=== PATIENT | male | born 1985 | race Caucasian/White ===

== ENCOUNTER 2020-02-29 18:02 | Emergency (ER) | payer BC, SELFPAY ==
[2020-02-29 18:13] VITALS: BP 150/101; PULSE 90; RESP 18; TEMP 36.7; O2SAT 97; BMI 28.7
[2020-02-29 18:18] VITALS: BP 150/101; PULSE 90; RESP 18; TEMP 36.7; O2SAT 97; BMI 28.6
--- NOTE | 2020-02-29 18:20 | XR_ITS ---
PROCEDURE: XR KNEE LT 3V CLINICAL INDICATION: FALL Posttraumatic pain with bruising and swelling COMPARISON: No exams were available for comparison FINDINGS: No fracture or dislocation. No lytic or blastic change. There is normal mineralization. The joint spaces are well-preserved. No significant degenerative/arthritic changes. No erosive changes evident. Other findings:There are 2 lucency is noted over the central tibial region of uncertain etiology. Soft tissue swelling is present in the pre patellar region and infrapatellar region. There may be a small knee joint effusion. IMPRESSION: No acute fracture. Soft tissue swelling with possible small knee joint effusion Nonspecific lucencies over the proximal tibia etiology indeterminate. Stability may be confirmed with follow-up Dictated by: Addison John MD 02/29/2020 21:46 Electronically signed by Addison John MD in [place] 02/29/2020 21:46
--- NOTE | 2020-02-29 18:22 | HMH.EDUTC ---
[facility] Disposition Clinical Impression: Patella fracture Qualifiers: Encounter type: initial encounter Fracture type: closed Fracture morphology: unspecified fracture morphology Fracture alignment: nondisplaced Laterality: left Qualified Code(s): S82.002A - Unspecified fracture of left patella, initial encounter for closed fracture Disposition: Home, Self-Care Condition on Discharge: Good Instructions: How to Use Crutches, How To Perform RICE (Rest, Ice, Compress, Elevate) Additional Instructions: *NO weight bearing *RICE, Rest the extremity, Ice 15-20 minutes 3-4 times daily, Compress- wear the dion wrap as discussed as much as possible to help reduce swelling and pain, Elevate the extremity when at rest *Knee immobilizer is for support and help control swelling, use it except in the shower. Be sure that is not to tight but not to loose either *Elevate when resting Elevation will help with swelling and pain *Ibuprofen 600 every 6-8 hours as needed for pain an inflammation. If need something more can take Tylenol in between doses of Ibuprofen to help Immediately follow up with your family doctor for new or worsening of symptoms, or no noticeable improvement over the next 3-5 days Follow up with Dr Davis in Orthopedic clinic her office will call you with appointment if they havent called you by noon on Monday call the office for appointment Return if needed Straight to ER if any life threatening symptoms Prescriptions: Ibuprofen [Ibuprofen 600mg Tablet] 600 mg PO Q6HP PRN #20 tab PRN Reason: Moderate Pain Prescription Printed Referrals: Provider,MD Meghna [Primary Care Provider] - As needed Lucero Davis MD [Physician] - As needed (Her office will call you with appointment if they havent called you by noon on Monday then call the office) Forms: Work/School Release Time of Disposition: 18:53 Medical Decision Making - Raymundo Inquiry Pt receiving controlled substance: No Raymundo was queried for this patient: No Vital Signs: 02/29/20 18:13 02/29/20 18:18 Temperature 98.1 F 98.1 F Temperature Source Oral Oral Pulse Rate [Left Radial] 90 90 Respiratory Rate 18 18 Blood Pressure [Left Arm] 150/101 H 150/101 H Blood Pressure Mean [Left Arm] 117 117 Blood Pressure Source [Left Arm] Automatic Cuff Automatic Cuff Blood Pressure Position [Left Arm] Sitting Sitting 02 Sat by Pulse Oximetry 97 97 Oxygen Delivery Method Room Air Room Air Orders (Tests/Meds): ED MEDICATIONS Discontinued Medications Generic Name Dose Route Start Last Admin Trade Name Cierra PRN Reason Stop Dose Admin Ketorolac Tromethamine 60 mg 02/29/20 18:46 02/29/20 18:54 Toradol 60mg/2ml Vial IM 02/29/20 18:47 60 mg ONCE ONE Administration ORDERS Category Date Time Status XR knee LT 3V Stat Exams 02/29/20 18:20 Taken - Radiology Data #1 Image(s): Knee Image Reviewed: Yes I reviewed the patient's radiology image ? patella fracture, knee immobilizer, crutches and follow up with Orthopedics Dr Davis - Physician Consults Physician Consulted: Susan Time: 18:40 Reason -: Orthopedic Eval/Care Comment/Response: Spoke with Dr Davis and she viewed xrays and agreed, ? patella fracture, advised place patient in knee immobilizer, crutches, rice, and her office will call with appointment [facility] HPI - General Stated complaint: AO [id number] injured L knee Time Seen by Provider: 02/29/20 18:22 Mode of Arrival: Ambulatory Source of Information: Patient Limitations: No Limitations Description of Symptoms (Recalled from Triage Doc. by RN): PT STATES THAT HE TRIPPED AND FELL ON MONDAY, HITTING BOTH KNEES. PT PRESENTS WITH BRUISING OF BOTH KNEES, BUT C/O PAIN ONLY IN THE LT KNEE. PT STATES THAT THE BRUISING HAS EXTENDED AND THE KNEE FEELS TIGHT TO BEND. HEENT Symptoms (Recalled from RN notes): No Resp Symptoms (Recalled from RN notes): No Skin Symptoms (Recalled from RN notes): Yes MS Symptoms (Recalled from RN no
[2020-02-29 19:41] VITALS: BP 150/101; PULSE 90; RESP 18; TEMP 36.7; O2SAT 97
== END 2020-02-29 19:42 | disposition home or self-care (01) ==
LOC: ER 18:16 → UTC 18:17
PROVIDERS: Emergency Provider Nurse Practitioner
DX: S82.002A Unspecified fracture of left patella, initial encounter for closed fracture (principal); W01.0XXA Fall on same level from slipping, tripping and stumbling without subsequent striking against object, initial encounter; Y92.89 Other specified places as the place of occurrence of the external cause
CPT/HCPCS: 29505; 73562; 96372; 99202; 99203

== ENCOUNTER → 2020-03-05 14:25 | Outpatient (CLI) | payer BC, SELFPAY ==
--- NOTE | 2020-03-05 14:25 | MR_ITS ---
PROCEDURE: MR KNEE LT WO CON CLINICAL INDICATION: fracture eval Fall with injury and pain, swelling and bruising with limited range of motion COMPARISON: XR KNEE LT 3V from 02/29/2020 TECHNIQUE: Routine multiplanar multi echo sequences are performed without gadolinium enhancement. FINDINGS: The cruciate ligaments, collateral ligaments, and patellar tendon has an unremarkable appearance.. There is discontinuity of the posterior aspect of the quadriceps tendon best detected on sagittal image 13 series 4 suggesting tear of the posterior aspect of the quadriceps tendon. The tear of the quadriceps tendon does not appear to be complete. Prominent soft tissue swelling is present in the prepatellar and infrapatellar region. Heterogeneous increased T2 signal involves the prepatellar and infrapatellar soft tissues measuring 4 x 1.4 cm consistent with hematoma no obvious patellar fracture. The patellar cartilage is preserved. No meniscal tear apparent. There is a small knee joint effusion. IMPRESSION: 1. No evidence of internal derangement or fracture. 2. Partial tear of the quadriceps tendon with suspected tear of the posterior surface of the tendon 3. Prepatellar and infrapatellar subcutaneous hematoma with soft tissue swelling Dictated by: Addison John MD 03/07/2020 08:11 Electronically signed by Addison John MD in [place] 03/07/2020 08:11
--- NOTE | 2020-03-05 14:33 | XR_ITS ---
PROCEDURE: XR ORBIT BILATERAL MIN 4V CLINICAL INDICATION: MRI CLEARANCE FOR FB History orbital foreign body COMPARISON: No exams were available for comparison FINDINGS: No fracture or dislocation. No lytic or blastic change. There is normal mineralization. The joint spaces are well-preserved. No significant degenerative/arthritic changes. No erosive changes evident. Other findings:None. IMPRESSION: No acute findings. Dictated by: Addison John MD 03/05/2020 15:31 Electronically signed by Addison John MD in [place] 03/05/2020 15:31
== END ==
LOC: RAD 14:25
PROVIDERS: Visit Provider Orthopaedic Surgery
DX: M25.562 Pain in left knee (principal); H05.53 Retained (old) foreign body following penetrating wound of bilateral orbits
CPT/HCPCS: 70200; 73721

== ENCOUNTER 2020-04-02 16:29 | Outpatient (RCR) | payer BC, SELFPAY | END 2020-04-02 17:00 | disposition home or self-care (01) | LOC: PT 16:29 | PROVIDERS: Visit Provider Orthopaedic Surgery | DX: S76.102A Unspecified injury of left quadriceps muscle, fascia and tendon, initial encounter (principal) ==

== ENCOUNTER → 2020-04-22 11:14 | Outpatient (CLI) | payer BC, SELFPAY ==
[2020-04-22 11:41] LABS: Basophils % 1.2 % (0.1-2.0); Eosinophils # 0.1 K/mm3 (0.0-0.4); Eosinophils % 3.3 % (0.1-12.0); Hematocrit 41.9 % (42.0-52.0); Hemoglobin 14.9 g/dL (14.1-18.0); Lymphocytes # 1.2 K/mm3 (0.7-4.5); Lymphocytes % 34.5 % (10-50); Mean Corpuscular HGB Conc 35.4 g/dL (31.8-35.4); Mean Corpuscular Hemoglobin 34.8 pg (27.0-31.2); Mean Corpuscular Volume 98.1 fl (80-94); Mean Platelet Volume 7.3 fl (7.4-10.4); Monocytes # 0.1 K/mm3 (0.1-1.0); Monocytes % 3.6 % (1.7-9.3); Neutrophils % 57.5 % (37.0-80.0); Platelet Count 150 K/mm3 (142-424); Red Blood Count 4.27 M/mm3 (4.60-6.20); Red Cell Distribution Width 12.7 % (11.5-17.5); White Blood Count 3.6 K/mm3 (4.8-10.8)
[2020-04-22 12:01] LABS: Chloride 97 mmol/L (98-107)
[2020-04-22 12:02] LABS: Potassium 4.5 mmoL/L (3.5-5.1); Sodium 140 mmol/L (136-145)
[2020-04-22 12:04] LABS: Alanine Aminotransferase 484 U/L (12-78); Alkaline Phosphatase 64 U/L (38-126); Anion Gap 17.5 mEq/L (5-15); Aspartate Amino Transferase 682 U/L (17-59); Blood Urea Nitrogen 6 mg/dl (9-20); Carbon Dioxide 30 mmol/L (22.0-30.0); Estimated Glomerular Filt Rate 111 ml/min (>60); GFR (African American) 135 ML/MIN (>60)
[2020-04-22 12:05] LABS: Albumin Level 4.7 g/dl (3.5-5.0); Albumin/Globulin Ratio 1.4 (1.1-1.8); Calcium 9.6 mg/dl (8.4-10.2); Globulin 3.3 g/dL (1.3-3.2); Glucose 91 mg/dl (74-100)
[2020-04-22 13:57] LABS: Coronavirus 19 IgG Antibody Negative (Negative); Coronavirus 19 IgM Antibody Negative (Negative)
== END ==
PROVIDERS: Visit Provider Orthopaedic Surgery
DX: Z01.818 Encounter for other preprocedural examination (principal); S76.102A Unspecified injury of left quadriceps muscle, fascia and tendon, initial encounter
CPT/HCPCS: 36415; 80053; 85025; 86328

== ENCOUNTER 2020-04-23 17:00 | Outpatient (RCR) | payer BC, SELFPAY | END 2020-04-23 17:05 | disposition home or self-care (01) | LOC: PT 17:00 | PROVIDERS: Visit Provider Orthopaedic Surgery | DX: M25.562 Pain in left knee (principal) | CPT/HCPCS: 97010; 97110; 97163; 97760 ==

== ENCOUNTER → 2020-04-24 12:46 | Outpatient (CLI) | payer BC, SELFPAY ==
[2020-04-24 14:08] LABS: Activated Partial Thrombo Time 20.7 seconds (23.6-34.0); INR 0.98 (0.9-1.1); Prothrombin Time 10.1 seconds (9.4-11.8)
[2020-04-24 14:25] LABS: Total Iron Binding Capacity 210 ug/dL (261-462)
[2020-04-24 14:30] LABS: Alanine Aminotransferase 444 U/L (12-78); Alkaline Phosphatase 58 U/L (38-126); Aspartate Amino Transferase 485 U/L (17-59); Bilirubin,Direct 0.3 mg/dl (0.0-0.4); Bilirubin,Indirect 0.6 mg/dL (0.0-0.9); Bilirubin,Total 0.9 mg/dl (0.2-1.3); Bilirubin,Unconjugated 0.6 mg/dL (0.0-1.1)
[2020-04-24 14:31] LABS: Albumin Level 4.7 g/dl (3.5-5.0); Total Protein,Serum 7.8 g/dl (6.3-8.2)
[2020-04-25 07:01] LABS: Hep A Ab, IgM Negative (Negative); Hepatitis B Core Antibody IgM Negative (Negative); Hepatitis B Surface Antigen Negative (Negative)
[2020-04-25 08:17] LABS: Hepatitis C Antibody 0.1 s/co ratio (0.0-0.9)
[2020-04-27 08:44] LABS: Ferritin 1190 ng/ml (17.9-464)
== END ==
PROVIDERS: Visit Provider Orthopaedic Surgery
DX: R94.5 Abnormal results of liver function studies (principal)
CPT/HCPCS: 36415; 80074; 80076; 82728; 83550; 85610; 85730

== ENCOUNTER → 2020-04-27 10:30 | Outpatient (CLI) | payer BC, SELFPAY ==
[2020-04-27 11:21] LABS: Alanine Aminotransferase 349 U/L (12-78); Albumin Level 4.6 g/dl (3.5-5.0); Alkaline Phosphatase 61 U/L (38-126); Aspartate Amino Transferase 294 U/L (17-59); Bilirubin,Direct 0.2 mg/dl (0.0-0.4); Bilirubin,Indirect 0.3 mg/dL (0.0-0.9); Bilirubin,Total 0.5 mg/dl (0.2-1.3); Bilirubin,Unconjugated 0.3 mg/dL (0.0-1.1)
== END ==
PROVIDERS: Visit Provider Family Medicine
DX: R79.89 Other specified abnormal findings of blood chemistry (principal)
CPT/HCPCS: 36415; 80076; 81256

== ENCOUNTER → 2020-04-29 08:01 | Outpatient (CLI) | payer BC, SELFPAY ==
[2020-04-29 08:50] LABS: Basophils # 0.1 K/mm3 (0-0.2); Basophils % 2.4 % (0.1-2.0); Eosinophils # 0.1 K/mm3 (0.0-0.4); Eosinophils % 5.1 % (0.1-12.0); Hematocrit 39.7 % (42.0-52.0); Hemoglobin 14.3 g/dL (14.1-18.0); Lymphocytes # 0.9 K/mm3 (0.7-4.5); Lymphocytes % 32.2 % (10-50); Mean Corpuscular Hemoglobin 35.3 pg (27.0-31.2); Mean Corpuscular Volume 98.2 fl (80-94); Mean Platelet Volume 7.5 fl (7.4-10.4); Monocytes # 0.2 K/mm3 (0.1-1.0); Monocytes % 6.5 % (1.7-9.3); Neutrophils # 1.5 K/mm3 (1.8-7.8); Neutrophils % 53.8 % (37.0-80.0); Platelet Count 196 K/mm3 (142-424); Red Blood Count 4.04 M/mm3 (4.60-6.20); Red Cell Distribution Width 12.8 % (11.5-17.5); White Blood Count 2.7 K/mm3 (4.8-10.8)
[2020-04-29 09:14] LABS: Chloride 97 mmol/L (98-107)
[2020-04-29 09:15] LABS: Potassium 4.4 mmoL/L (3.5-5.1); Sodium 139 mmol/L (136-145)
[2020-04-29 09:17] LABS: Alanine Aminotransferase 311 U/L (12-78); Aspartate Amino Transferase 256 U/L (17-59); Blood Urea Nitrogen 7 mg/dl (9-20); Estimated Glomerular Filt Rate 111 ml/min (>60); GFR (African American) 135 ML/MIN (>60)
[2020-04-29 09:18] LABS: Albumin Level 4.9 g/dl (3.5-5.0); Albumin/Globulin Ratio 1.5 (1.1-1.8); Alkaline Phosphatase 57 U/L (38-126); Anion Gap 19.4 mEq/L (5-15); Bilirubin,Total 0.9 mg/dl (0.2-1.3); Calcium 9.8 mg/dl (8.4-10.2); Carbon Dioxide 27 mmol/L (22.0-30.0); Globulin 3.3 g/dL (1.3-3.2); Glucose 97 mg/dl (74-100); Total Protein,Serum 8.2 g/dl (6.3-8.2)
[2020-04-29 12:08] LABS: Coronavirus 19 IgG Antibody Negative (Negative); Coronavirus 19 IgM Antibody Negative (Negative)
== END ==
PROVIDERS: Visit Provider Orthopaedic Surgery
DX: Z01.818 Encounter for other preprocedural examination (principal); S76.102A Unspecified injury of left quadriceps muscle, fascia and tendon, initial encounter
CPT/HCPCS: 36415; 80053; 85025; 86328

== ENCOUNTER 2020-04-30 11:43 | Day surgery (SDC) | payer BC, SELFPAY ==
[2020-04-21 11:55] VITALS: BMI 26.6
[2020-04-30] VITALS (18 sets, daily range): BP systolic 120–168; BP diastolic 52–104; PULSE 75–100; RESP 12–23; TEMP 36.4–43; O2SAT 93–99
--- NOTE | 2020-04-30 13:24 | P.PN_ITS ---
[facility] Anesthesia Checklist - Patient Identification Patient Identification: Arm Band - Structural Data Admitted From: Home Planned Operative Procedure/s: Left Quadriceps Tendon Repair Consent for Planned Operative Procedure(s) Verified: Yes Verified Documents: Surgical Consent, History and Physical - NPO Status Verified Time NPO: 00:00 - Additional verifications Anesthesia Reactions: No Hx Blood Transfusions: No Blood Transfusion Reaction: No - Airway Assessment C-Spine Mobility Assessed: Yes (mp2) TMJ Mobility Assessed: Yes Dentition: Good Dentition - Neurological Assessment Level of Consciousness: Awake, Alert - Anesthesia Plan Anesthesia Risk discussed: Yes Anesthesia Plan: Verified ASA Class: II Anesthesia Type: General [facility] History I have reviewed the patient's past medical history: Yes Medical History: Reports:: Anxiety, Gastroesophageal Reflux Disease(GERD) Denies:: Cancer, Diabetes Mellitus Type 1, Diabetes Mellitus Type 2, Internal Pacemaker, MRSA, Seizures *Have you ever received a pneumonia vaccine?: No *Have you received a flu vaccine this season?: Yes Other Medical History: Denies: Blood Transfusion Reaction Anesthesia experience/problems:: nac Laterality Cases: Left: Arthroscopy Shoulder, Bilateral: Tonsillectomy Other Surgeries: Yes: Cholecystectomy. No: Pacemaker Amputation: No Fractures: No - *Social History Last grade of school completed: Advanced degree Smoking Status: Never smoker Alcohol Intake: current Alcohol Intake Frequency:: a few times a month Substance Use Type: denies use *Occupational Status:: employed Housing: house Household Members: significant other *Travel in the last 8 weeks: None Family Hx:: Cancer, Coronary Artery Disease
--- NOTE | 2020-04-30 15:55 | P.PN_ITS ---
[facility] Anesthesia Record Part I Intake, IV Amount: 1,700 Estimated blood loss (mL): 25 Urine output (mL): 0 Blood Pressure: 120/52 SaO2: 95 Pulse Rate: 92 Respiratory Rate: 12 Temperature: 97.5 F Patient is:: Awake, Stable Stable to PACU at:: 15:50
--- NOTE | 2020-04-30 20:05 | P.PN_ITS ---
[facility] Anesthesia Record Part II Discharge Time: 16:55 Destination: Surgical Day Care (OP Surgery) PACU nurse assessment reviewed?: Yes Patient Condition:: Good Anesthesia Complications:: None Swallowing reflex intact?: Yes Cyanosis?: No Blood Pressure: 148/95 Pulse Rate: 87 Temperature: 98.9 F Mental Status: Alert & Oriented Pain level:: 5 Nausea and/or vomitting:: None Intake, IV Amount: 0
--- NOTE | 2020-04-30 23:19 | HMH.OPNOTE ---
Date of procedure: 04/30/20 Pre-op Diagnosis:: L quadriceps tendon rupture (high-grade partial tear) Post-op Diagnosis:: L quadriceps tendon rupture (high-grade partial tear) Procedure performed:: L quadriceps tendon repair Surgeon:: Lucero Davis MD Compliance Nurse(s):: Micheal Peralta TECHNICAL SUPPORT DIRECTOR:: Vijay Winters Anesthesia: GETA Estimated blood loss (mL): 25 Clinical Note:: 35yo M with a high-grade partial rupture of the L quadriceps tendon that occurred in early February 2020; exact date unknown. He tripped while working and landed on both knees directly onto metal flashing. He had pain and bruising over both knees, but the right knee soon improved; the left remained painful with extensive bruising and precipitated a trip to the urgent care center on 02/29/20. X-rays that day were negative. Initial evaluation in my clinic was performed on 03/02/20, where an extensor lag was noted. Subsequent MRI revealed a partial thickness quadriceps tendon tear, and initial non-operative treatment was attempted. He was transitioned from a knee immobilizer to a rigid hinged knee orthosis. Physical therapy was started, but the patient failed to progress. He worked with PT in person and did daily home exercises, but he continued to struggle with ambulation, range of motion and strength. Without surgery, could not afford to take off work and continued to work light duty during this time; he was also unable to remain non-weightbearing for the same reason. His pain continued to increase to the point he desired surgical intervention, with plans to use short term disability to remain off work and focus on his recovery. He denied any baseline medical comorbidities and takes no daily home medications. He does not have a primary care physician. He reports drinking a 6-pack of beer on the weekends. He does not smoke but chews tobacco, about 1/2 can per day. He is allergic to lidocaine; he is unsure of the exact reaction but says he had airway issues when this was administered at the dentist office as a child. He is employed as a electric spot welder. On review of the MRI, I believe the quadriceps tear appears to be a high-grade partial-thickness tear with greater than 50% of the tendon thickness torn. I discussed the surgery with the patient in detail, including the possibility of in situ repair versus (most likely option) detachment of the remainder of the tendon with a full-thickness repair, and the possibility that graft augmentation or a chronic tear procedure such as the Scuderi technique would be needed. The patient was counseled regarding the risks, benefits and alternatives to both surgical and nonsurgical options. We discussed the risks of surgery, which include but are not limited to: bleeding, infection, failure of tendon or wound healing, tendon rerupture, failure of hardware or repair, patellar fracture, persistent weakness, stiffness or difficulty with ambulation post surgery, need for revision surgery, neurovascular damage including foot drop, and risks of anesthesia which include heart attack, stroke and even . The patient vocalized understanding of these risks and provided informed consent for the procedure. Preoperative laboratory testing revealed significantly elevated liver function testing. Specifically, his AST was 682 and ALT 484. Anesthesia was not comfortable performing surgery until this was evaluated. Surgery was canceled and the patient scheduled to see Dr. Buenrostro for consultation as a new patient. On further inquiry, the patient does report a history of heavy alcohol use. He drinks at a sixpack of beer every day, and drinks very heavily on the weekends; he could not quantitate how much he drinks at that time. He has not completely stopped drinking over the past week, but he has drastically cut back, and Dr. Buenrostro has followed his LFTs during that time. They have been trending downward. He does have a increased ferritin level and decreased TIBC. Hemochromatosis work-up is p
== END 2020-04-30 17:23 | disposition home or self-care (01) ==
LOC: OR 11:43
PROVIDERS: PCP Orthopaedic Surgery; Visit Provider Orthopaedic Surgery
PROC: (CPT 27430; principal; 2020-04-30 13:30)
DX: S76.112A Strain of left quadriceps muscle, fascia and tendon, initial encounter (principal); W01.0XXA Fall on same level from slipping, tripping and stumbling without subsequent striking against object, initial encounter; Y92.69 Other specified industrial and construction area as the place of occurrence of the external cause; M70.42 Prepatellar bursitis, left knee
CPT/HCPCS: 27430; 96374; J2405

== ENCOUNTER → 2020-05-08 12:49 | Outpatient (CLI) | payer BC, SELFPAY ==
--- NOTE | 2020-05-08 12:52 | XR_ITS ---
PROCEDURE: XR KNEE LT 3V CLINICAL INDICATION: s/p Lt quad tendon repair COMPARISON: CR XR KNEE LT 3V from 02/29/2020 FINDINGS: No fracture or dislocation. No lytic or blastic change. There is normal mineralization. The joint spaces are well-preserved. No significant degenerative/arthritic changes. No erosive changes evident. Other findings:There is mild soft tissue swelling in the infrapatellar and prepatellar region. Increased density noted in the suprapatellar area suggesting knee joint effusion IMPRESSION: Suspect knee joint effusion with soft tissue swelling otherwise negative Dictated by: Addison John MD 05/08/2020 16:50 Addison John MD in [place] 05/08/2020 16:50
== END ==
PROVIDERS: PCP Family Medicine; Visit Provider Orthopaedic Surgery
DX: S76.109A Unspecified injury of unspecified quadriceps muscle, fascia and tendon, initial encounter (principal)
CPT/HCPCS: 73562

== ENCOUNTER 2020-06-23 10:00 | Outpatient (RCR) | payer BC, SELFPAY ==
--- NOTE | 2020-05-14 15:41 | HMH.PTOPEV ---
PT Outpatient Evaluation Rehab PT Outpatient Evaluation Start: 05/14/20 15:26 Freq: Status: Active Protocol: Document 05/14/20 15:26 WIN (Rec: 05/14/20 15:36 PHOFERNANDO [id number]) Electronically Signed By Vidal Angel, PT 05/14/20 15:26 Outpatient Therapy Subjective History Subjective History Pt is 35 yowm who presents ~ 2 wks S/P L quad tendon repair with pain, edema, and weakness . He reports he originally injured the knee after a fall. He reports now he has throbbing pain most of the time and worse with increased activity. Generally appears in good health otherwise. Following WB precautions with crutches currently. Chief Complaint Pain,Stiff,Swelling,Weakness Symptom Type Ache,Throb Symptoms Relieved By Rest/Positioning Symptoms Aggravated By Physical Activity Prior Functional Limitations None Current Functional Limitations Standing,Recreation Activity, Walking,Stairs,Balance Symptom Description Constant but Variable Level of pain today (0-10) 6 Pain scale - at its worst (0-10) 9 Hip/Knee Eval Gait Observation General Gait Pattern Observation Antalgic Gait,Decrease Weight Bear (L) Assistive Device Assistive Devices Axillary Crutches Palpation Tenderness left Knee Palpation Finding Tenderness Knee Palpation Overall Comment throughout L knee, worse at sup incision area. MMT Hip Flexion Strength Grade 2+ Poor+ Hip Abduction Strength Grade 2+ Poor+ Knee Extension Strength Grade 2 Poor Knee Flexion Strength Grade 2 Poor ROM Knee Extension Active Range of Motion ( -12 degrees) Knee Extension Passive Range of Motion ( -8 degrees) Knee Flexion Active Range of Motion ( 12-50 degrees) Knee Flexion Passive Range of Motion ( 8-55 degrees) Outpatient Therapy Assessment Impairments Problems/Impairmments Palpation Tenderness,Impaired Range of Motion,Impaired Strength,Impaired Endurance, Impaired Gait Pattern,Impaired Walking,Impaired Standing, Increased Edema,Subjective C/O Pain,Impaired Self Care/Self Management Prognosis Rehab Potential Goo
--- NOTE | 2020-06-23 10:16 | HMH.RHREAS ---
Rehab Reassessment Rehab OP Re-assessment Start: 06/23/20 10:12 Freq: Status: Active Protocol: Document 06/23/20 10:13 WIN (Rec: 06/23/20 10:16 WIN [id number]) Electronically Signed By Vidal Angel, PT 06/23/20 10:13 Rehab Re-assessment Subjective Subjective Pt reports he has been working his knee as much as he can at home. Objective Objective Notes AROM L knee: 0-112 deg MMT L LE: Hip flex 2/5, hip abd 3/5, knee flex 4/5, knee ext 2/5 Assessment Progress Assessment Progressing as Expected Assessment Notes Pt continues to have difficulty with SLR and quad control on L, but is significantly improved. Patient goals met ST,2,3,4,5,6,7 Goals Not Met LT,2,3,4,5,6,7 Revised Goals none Plan Plan Continue per initial POC and per protocol. Frequency of Therapy 2 x/wk Duration of therapy 8 wks Time and Billing Re-Eval Time 15 Re-Eval Billing Units 1 PHYSICIAN CERTIFICATION: I certify the specified therapy services for Davide Garcia are required, authorized, and reviewed every 30 days.
== END 2020-06-23 10:05 | disposition home or self-care (01) ==
LOC: PT 10:00
PROVIDERS: PCP Family Medicine; Visit Provider Orthopaedic Surgery
DX: S76.102A Unspecified injury of left quadriceps muscle, fascia and tendon, initial encounter (principal)
CPT/HCPCS: 97010; 97014; 97016; 97110; 97140; 97163; 97164; 97760; G0283